=== PATIENT | female | born 1940 | race Caucasian/White ===

== ENCOUNTER → 2017-01-16 | Outpatient (CLI) | payer MEDICARE, OTHER | END | disposition home or self-care (01) | LOC: GMAB 17:46 | PROVIDERS: ATTEND Family Medicine | DX: R41.82 Altered mental status, unspecified (principal); R41.81 Age-related cognitive decline ==

== ENCOUNTER → 2017-01-18 | Outpatient (CLI) | payer MEDICARE, OTHER ==
--- NOTE | 2017-01-21 17:23 | MRI ---
EXAM DESCRIPTION: Brain w/oContrast CLINICAL HISTORY: 76 years Female, MEMORY LOSS, ALT MENTAL STATUS, AGE RELATED COGN DECLINE COMPARISON: None. TECHNIQUE: Multiplanar multisequence images of the brain were obtained without gadolinium contrast. FINDINGS: There is no diffusion restriction. Midline structures, including the corpus callosum, pituitary and brainstem, are unremarkable. The ventricles are of normal size and configuration without intraventricular mass. No extra-axial fluid collections. Physiologic vascular flow voids are noted. The internal auditory canals are unremarkable. No posterior fossa lesion. There are only minimal chronic ischemic microvascular changes involving periventrical white matter. No intracranial mass or cortical infarct. Visualized paranasal sinuses and orbits are unremarkable. No calvarial lesion. IMPRESSION: Very mild chronic ischemic microvascular changes, but no cortical infarct, atrophy or other intracranial abnormality to explain patient symptoms. Electronically signed by: German Kaye MD 01/21/2017 12:20 PM CDT Workstation: [id number]
== END ==
LOC: MRI 13:59
PROVIDERS: ATTEND Family Medicine
DX: R41.82 Altered mental status, unspecified (principal); R41.81 Age-related cognitive decline

== ENCOUNTER → 2017-04-02 | Outpatient (CLI) | payer MEDICARE, OTHER | END | disposition home or self-care (01) | LOC: GMAB 10:36 | PROVIDERS: ATTEND Family Medicine | DX: I10 Essential (primary) hypertension (principal) ==

== ENCOUNTER → 2018-09-24 | Outpatient (CLI) | payer MEDICARE, OTHER | LOC: GMAE 13:13 | PROVIDERS: ATTEND Family Medicine | DX: I10 Essential (primary) hypertension (principal) ==

== ENCOUNTER → 2018-09-30 | Outpatient (CLI) | payer MEDICARE, OTHER | LOC: GMAE 14:09 | PROVIDERS: ATTEND Family Medicine | DX: R07.2 Precordial pain (principal) ==

== ENCOUNTER 2018-10-07 13:54 | Emergency (ER) | payer MEDICARE, OTHER ==
[2018-10-07 14:09] VITALS: TEMP 97.6
--- NOTE | 2018-10-07 14:45 | RAD ---
EXAM DESCRIPTION: Wrist,Right 3 Views CLINICAL HISTORY: fall with pain distal radius COMPARISON: None. TECHNIQUE: 3 views right FINDINGS: Diffuse osteopenia is observed. Some calcification of the triangle fibrocartilage is noted. Radial side intracarpal arthritis is noted. Degenerative changes are observed in the fingers of the hand. No fracturing is detected. IMPRESSION: Osteopenia and degenerative changes are observed in the wrist. No fracturing is detected. Electronically signed by: Kishor Garcia MD 10/07/2018 2:42 PM CDT
--- NOTE | 2018-10-07 14:53 | ED.PDOC ---
History of Present Illness - General Chief Complaint: Upper Extremity Injury Stated Complaint: R wrist injury Time Seen by Provider: 10/07/18 14:00 Source: patient Exam Limitations: no limitations - History of Present Illness Initial Comments: the patient is an 78-year-old female presenting to the emergency room secondary to having injured her rightwrist after tripping while working in the garden. The patient has no obvious deformity other than some swelling around the wrist. She appears to be neurovascularly preserved. Capillary refills normal limits. She moves her fingers well. Normal movement of the elbow and shoulder. She does have some guarding of the wrist itself. Tenderness is mainly localized over thedistal radius. Timing/Duration: 4-6 hours Severity: moderate Improving Factors: immobilization Worsening Factors: movement Associated Symptoms: denies symptoms Allergies/Adverse Reactions: Allergies NO KNOWN ALLERGY Allergy (Verified 09/16/12 15:23) Home Medications: Ambulatory Orders Aspirin [Aspirin Adult Low Strengt] 81 mg PO DAILY 09/16/12 Metoprolol Succinate [Toprol Xl] 50 mg PO DAILY 09/16/12 Simvastatin 40 mg PO DAILY 09/16/12 Review of Systems - Review of Systems Constitutional: States: no symptoms reported EENTM: States: no symptoms reported Respiratory: States: no symptoms reported Cardiology: States: no symptoms reported Gastrointestinal/Abdominal: States: no symptoms reported Genitourinary: States: no symptoms reported Musculoskeletal: States: see HPI Skin: States: no symptoms reported Neurological: States: no symptoms reported Endocrine: States: no symptoms reported All other Systems: No Change from Baseline Past Medical History (General) - Patient Medical History Hx Stroke: No Hx Cardiac Disorders: Yes - Dyslipidemia Hx Congestive Heart Failure: No Hx Hypertension: Yes Hx Diabetes: No Surgical History: appendectomy, tonsillectomy, Hysterectomy - Vaccination History Hx Influenza Vaccination: Yes - 03/2018 Hx Pneumococcal Vaccination: No - Social History Hx Tobacco Use: No Hx Alcohol Use: No Family Medical History - Family History Mother Living Status: Cause of : Ovarian CA Physical Exam - Physical Exam General Appearance: Alert, Comfortable, No apparent distress Eye Exam: bilateral normal Ears, Nose, Throat: hearing grossly normal Neck: full range of motion Respiratory: no respiratory distress, no accessory muscle use Cardiovascular/Chest: normal peripheral pulses, no edema Peripheral Pulses: radial,right: 2+, radial,left: 2+ Rectal Exam: deferred Back Exam: normal inspection Extremity: no pedal edema, normal capillary refill, swelling, other - see history of present illness 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 The patient appears to have a mild right wrist sprain. X-ray shows no evidence of any fracture or dislocation. Motrin can be used for discomfort. Nir wrap was applied. Keep routine follow up with primary care doctor otherwise. Departure - Departure Clinical Impression: Sprain of wrist, right Qualifiers: Encounter type: initial encounter Qualified Code(s): S63.501A - Unspecified sprain of right wrist, initial encounter Disposition: Discharge to Home or Self Care Condition: Fair Departure Forms: ED Discharge - Pt. Copy, Patient Portal Self Enrollment Instructions: DI for Hand Injury Diet: regular diet Activity: no pushing/pulling with affected limb Referrals: RANDI HEDRICK MD [Primary Care Provider] - 1-2 Weeks Home Medications: Ambulatory Orders Aspirin [Aspirin Adult Low Strengt] 81 mg PO DAILY 09/16/12 Metoprolol Succinate [Toprol Xl] 50 mg PO DAILY 09/16/12 Simvastatin 40 mg PO DAILY 09/16/12 Additional Instructions: the patient is a 78-year-old female presented to emergency room secondary to falling while in her yard. The patient appears to have a mild right wrist sprain. X-ray shows no evidence of any fracture or dislocation. Motrin can be used for discomfort. Nir wrap was applied. Keep routine follow up with primary care doctor otherwise.
[2018-10-07 15:04] VITALS: BP 125/72; O2SAT 95
== END 2018-10-07 15:00 | disposition home or self-care (01) ==
LOC: ER 13:54
DX: S63.501A Unspecified sprain of right wrist, initial encounter (principal); E78.5 Hyperlipidemia, unspecified; I10 Essential (primary) hypertension; Z79.82 Long term (current) use of aspirin; Z79.899 Other long term (current) drug therapy; W01.0XXA Fall on same level from slipping, tripping and stumbling without subsequent striking against object, initial encounter; Y92.007 Garden or yard of unspecified non-institutional (private) residence as the place of occurrence of the external cause; Y93.H2 Activity, gardening and landscaping

== ENCOUNTER → 2019-03-19 | Outpatient (CLI) | payer MEDICARE, OTHER | LOC: NM 09:00 | PROVIDERS: ATTEND Family Medicine | DX: R07.89 Other chest pain (principal) ==

== ENCOUNTER → 2019-11-05 | Outpatient (CLI) | payer MEDICARE, OTHER | LOC: RESP 15:08 | PROVIDERS: ATTEND Family Medicine | DX: F10.129 Alcohol abuse with intoxication, unspecified (principal); R00.1 Bradycardia, unspecified ==

== ENCOUNTER → 2019-12-15 | Outpatient (CLI) | payer MEDICARE, OTHER | LOC: GMAE 11:19 | PROVIDERS: ATTEND Family Medicine | DX: I10 Essential (primary) hypertension (principal) ==

== ENCOUNTER → 2019-12-23 | Outpatient (CLI) | payer MEDICARE, OTHER ==
[~2019-12-23] MED LIST: ALBUTEROL SULFATE 2.5 MG/3 ML VIAL NEB ONE
== END ==
LOC: RESP 12-22 14:05
PROVIDERS: ATTEND Family Medicine
DX: R06.00 Dyspnea, unspecified (principal)

== ENCOUNTER 2020-04-08 13:22 | Emergency (ER) | payer MEDICARE, OTHER ==
[2020-04-08] MEDS ORDERED: HYDROmorphone HCL INJ 2 MG/ML VIAL IM ONE (13:45)
[2020-04-08] MEDS ORDERED: ONDANSETRON ODT (ER DISP) 8 MG TAB PO ONE (13:47)
[2020-04-08] MEDS ORDERED: ONDANSETRON ODT 8 MG TAB SL ONE (13:50)
--- NOTE | 2020-04-08 14:35 | CT ---
EXAM DESCRIPTION: Cervical Spine CLINICAL HISTORY: TRAUMA COMPARISON: None available. TECHNIQUE: Axial noncontast CT of the cervical spine with coronal and sagittal reformats. This exam was performed according to our departmental dose-optimization program, which includes automated exposure control, adjustment of the mA and/or kV according to patient size and/or use of iterative reconstruction technique. FINDINGS: Cervical vertebral body heights are maintained. Straightening of the normal cervical lordosis. Osteopenia the osseous structures. No acute fracture or posttraumatic positional abnormality of the cervical spine. Bony hypertrophy between the spinous process of C7 and T1 is noted. Moderate to severe facet hypertrophic and degenerative changes of the left from C3 through C6. Severe disc space narrowing at C5-6 with moderate disc space narrowing at C6-7. Bony foraminal encroachment is seen most significantly on the left at C3-4 and C4-5. Moderate degenerative changes between the anterior arch of C1 and the odontoid. Patchy groundglass attenuation is seen in the lung apices. IMPRESSION: No CT evidence of acute fracture or posttraumatic positional abnormality of the cervical spine. Moderate to severe spondylitic changes of the cervical spine are seen. Groundglass attenuation in the lung apices is nonspecific. Imaging features can be seen with COVID-19 pneumonia, though are nonspecific and can occur with a variety of infectious and noninfectious processes. [PneInd] Electronically signed by: Negro Merritt MD 04/08/2020 2:33 PM CDT
--- NOTE | 2020-04-08 14:36 | CT ---
EXAM DESCRIPTION: Head CLINICAL HISTORY: TRAUMA COMPARISON: None TECHNIQUE: Noncontrast transaxial CT images of the head are obtained from base to vertex. This exam was performed according to our departmental dose-optimization program, which includes automated exposure control, adjustment of the mA and/or kV according to patient size and/or use of iterative reconstruction technique. FINDINGS: The midline structures are not displaced. Sulci are age-appropriate. There are areas of decreased attenuation in the periventricular white matter and the white matter of the centrum semiovale. There is no evidence of mass, mass-effect, hydrocephalus, or acute intracranial hemorrhage. No abnormal extra axial fluid collection is seen. Bone windows show no evidence of depressed skull fracture. Moderate calcifications of the intracranial carotid arteries. The visualized paranasal sinuses are unremarkable. IMPRESSION: 1. Age-appropriate atrophy with evidence of old small vessel ischemic type changes seen. 2. No acute abnormality is seen on noncontrast CT of the head. Electronically signed by: Negro Merritt MD 04/08/2020 2:34 PM CDT
--- NOTE | 2020-04-08 14:44 | CT ---
EXAM DESCRIPTION: Lumbar Spine CLINICAL HISTORY: TRAUMA COMPARISON: None TECHNIQUE: Non contrast transaxial CT images of the lumbar spine are obtained with coronal and sagittal reconstructed images. This exam was performed according to our departmental dose-optimization program, which includes automated exposure control, adjustment of the mA and/or kV according to patient size and/or use of iterative reconstruction technique . FINDINGS: GENERAL Osseous structures are diffusely osteopenic. Lumbar vertebral body heights are maintained. Designated L5-S1 disc space is seen on axial image 77 of series 5. A rudimentary S1-S2 disc space is seen. Visualized intra-abdominal retroperitoneal structures show no acute findings. Degenerative changes of the sacroiliac joints are seen. Mild to moderate disc space narrowing throughout the lumbar spine is most significant at L4-5 and L5-S1 with vacuum disc at these levels. Facet hypertrophic and degenerative changes are also seen throughout the lumbar spine with severe facet arthropathy at L4-5 and left greater than right severe facet arthropathy at L5-S1. Multifactorial severe spinal canal stenosis seen at L4-5 with moderate bilateral foraminal encroachment. At least moderate spinal canal stenosis is seen at L5-S1 with moderate left foraminal encroachment. IMPRESSION: Osteopenia the osseous structures is seen without acute fracture or posttraumatic positional abnormality of the lumbar spine. Moderate to severe on the lytic changes of the lumbar spine are most significant from L4 through S1. Multifactorial severe spinal canal stenosis with moderate bilateral foraminal encroachment is seen at L4-5. Electronically signed by: Negro Merritt MD 04/08/2020 2:42 PM CDT
--- NOTE | 2020-04-08 14:50 | ED.PDOC ---
History of Present Illness - General Chief Complaint: Trauma Stated Complaint: back pain Time Seen by Provider: 04/08/20 13:43 Additional Information: FELL BACKWARDS AT HOME, LAID ON GROUND FOR APPROXIMATELY 30 MINUTES BEFORE FOUND BY NEIGHBOR. WAS KNOCKED DOWN BY HER DOG. C/O PAIN IN OCCIPUT AREA, HER NECK AND HER LOW BACK. DENIES LOC, RECENTLY ON ANTICOAGULANT BECAUSE OF COVID ILLNESS. - History of Present Illness Occurred: just prior to arrival Allergies/Adverse Reactions: Allergies NO KNOWN ALLERGY Allergy (Verified 09/16/12 15:23) Home Medications: Ambulatory Orders Aspirin [Aspirin Adult Low Strengt] 81 mg PO DAILY 09/16/12 Simvastatin 40 mg PO DAILY 09/16/12 Citalopram Hydrobromide [Citalopram] 20 mg PO DAILY 04/08/20 Hydrochlorothiazide 12.5 mg PO DAILY 04/08/20 Omeprazole 40 mg PO DAILY 04/08/20 Tramadol-Acetaminophen [Ultracet] 1 ea PO Q4H PRN #25 tab 04/08/20 Review of Systems - Review of Systems Constitutional: States: no symptoms reported EENTM: States: no symptoms reported Respiratory: States: no symptoms reported, cough Cardiology: States: no symptoms reported. Denies: chest pain Gastrointestinal/Abdominal: States: no symptoms reported, abdominal pain Musculoskeletal: States: no symptoms reported Skin: States: no symptoms reported Neurological: States: no symptoms reported Past Medical History (General) - Patient Medical History Hx Stroke: No Hx Cardiac Disorders: Yes - Dyslipidemia Hx Congestive Heart Failure: No Hx Hypertension: Yes Hx Diabetes: No Surgical History: appendectomy, Hysterectomy - Vaccination History Hx Influenza Vaccination: Yes - 03/2018 Hx Pneumococcal Vaccination: No - Social History Hx Tobacco Use: No Hx Alcohol Use: No Family Medical History - Family History Mother Living Status: Cause of : Ovarian CA Physical Exam - Physical Exam General Appearance: Alert, Anxious, Frail Head Injury: swelling - MILD OCCIPITAL, tenderness - MILD OCCIPITAL Neck Exam: tenderness - DIFFUSE, tender lateral - BILATERAL DIFFUSE Cardiovascular/Respiratory: regular rate, rhythm, normal peripheral pulses, no JVD, normal breath sounds, no respiratory distress Gastrointestinal/Abdominal: normal bowel sounds, non tender, soft, no organomegaly Back Exam: muscle spasm - LUMBAR L3-4 AREA, vertebral tenderness - L3-4 AREA. 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, no motor/sensory deficits, alert, normal mood/affect Skin Exam: normal color, warm/dry Departure - Departure Clinical Impression: Contusion of scalp Qualifiers: Encounter type: initial encounter Qualified Code(s): S00.03XA - Contusion of scalp, initial encounter Cervical strain, acute Qualifiers: Encounter type: initial encounter Qualified Code(s): S16.1XXA - Strain of muscle, fascia and tendon at neck level, initial encounter Lumbar strain Qualifiers: Encounter type: initial encounter Qualified Code(s): S39.012A - Strain of muscle, fascia and tendon of lower back, initial encounter Disposition: Discharge to Home or Self Care Condition: Fair Departure Forms: ED Discharge - Pt. Copy, Patient Portal Self Enrollment Instructions: DI for Trauma Referrals: RANDI HEDRICK MD [Primary Care Provider] - 1-2 Weeks Prescriptions: Tramadol-Acetaminophen [Ultracet] 1 ea PO Q4H PRN #25 tab PRN Reason: Pain Home Medications: Ambulatory Orders Aspirin [Aspirin Adult Low Strengt] 81 mg PO DAILY 09/16/12 Simvastatin 40 mg PO DAILY 09/16/12 Citalopram Hydrobromide [Citalopram] 20 mg PO DAILY 04/08/20 Hydrochlorothiazide 12.5 mg PO DAILY 04/08/20 Omeprazole 40 mg PO DAILY 04/08/20 Tramadol-Acetaminophen [Ultracet] 1 ea PO Q4H PRN #25 tab 04/08/20 Additional Instructions: ALSO RECOMMEND OTC IBUPROFEN 800 MG THREE TIMES PER DAY X 5 DAYS. REEVALUATION IN 1 WEEK IF NOT IMPROVING.
[2020-04-08 15:10] VITALS: BP 130/70; TEMP 97.9; O2SAT 93
== END 2020-04-08 15:10 | disposition home or self-care (01) ==
LOC: ER 13:22
DX: S00.03XA Contusion of scalp, initial encounter (principal); S16.1XXA Strain of muscle, fascia and tendon at neck level, initial encounter; S39.012A Strain of muscle, fascia and tendon of lower back, initial encounter; R10.9 Unspecified abdominal pain; E78.5 Hyperlipidemia, unspecified; I10 Essential (primary) hypertension; R05 Cough; Z79.82 Long term (current) use of aspirin; Z79.899 Other long term (current) drug therapy; Z79.01 Long term (current) use of anticoagulants; Z86.19 Personal history of other infectious and parasitic diseases; W18.30XA Fall on same level, unspecified, initial encounter; Y92.009 Unspecified place in unspecified non-institutional (private) residence as the place of occurrence of the external cause; W54.1XXA Struck by dog, initial encounter
CPT/HCPCS: 70450; 72125; 72131; J1170

== ENCOUNTER → 2020-07-12 | Outpatient (CLI) | payer MEDICARE, OTHER | LOC: BFHH 10:46 | PROVIDERS: ATTEND Family Medicine | DX: N39.0 Urinary tract infection, site not specified (principal) ==

== ENCOUNTER → 2020-07-18 | Outpatient (CLI) | payer MEDICARE, OTHER | LOC: BFHH 09:53 | PROVIDERS: ATTEND Family Medicine | DX: I10 Essential (primary) hypertension (principal); E55.9 Vitamin D deficiency, unspecified; R53.1 Weakness ==

== ENCOUNTER → 2020-08-03 | Outpatient (CLI) | payer MEDICARE, OTHER ==
--- NOTE | 2020-08-04 20:22 | MRI ---
EXAM DESCRIPTION: Lumbar Spine w/o Contrast : Magnetic Resonance Imaging. CLINICAL HISTORY: BACK PAIN COMPARISON: MRI scan lumbar spine March 2014. TECHNIQUE: CT scan lumbar spine April 2020. FINDINGS: L5-S1: The disc is well visualized on axial T2 series 501, image 8. Rudimentary S1-S2 disc is present with the S1 vertebra transitional and partially lumbarized. L5-S1 disc desiccation and moderate disc space loss in the midline and left. Posterior broad-based bulge. Disc osteophyte complex encroaching on the left foramen abutting the left L5 nerve. Moderate narrowing of the right foramen hypertrophic changes of the posterior flavum ligaments and facet joints (canal elements). Bilateral short pedicles bilateral narrowing of the subarticular recesses, possibly stenotic on the left, encroaching on the left S1 nerve. AP canal diameter 6 mm. This has progressed since the prior study. Compression type fracture of the head and anterior vertebral body predominantly the inferior endplate with marrow edema. Not present on the prior MRI or CT scan. Expansion of the T12-L1 disc space into the endplate. No marrow edema in the pedicles. Trace retropulsion of the inferior endplate. Minimal edema in the T12-L1 disc. Soft tissue edema anterior to the vertebra and also more on the left L4-L5: Disc desiccation and minimal disc space loss mostly posterior. Grade 1 anterolisthesis 6 mm has increased since the prior study. Bilateral short pedicles. Hypertrophic changes in the canal elements impressing on the posterior thecal sac. AP canal diameter 5 mm. This has progressed since the prior study. Bilateral narrowing of the subarticular recesses. Moderate to severe left foraminal narrowing and borderline right foraminal stenosis. Stenosis has progressed since the prior study. L3-L4: Disc desiccation with anterior bulging and endplate ridging. Posterior disc space loss and moderate endplate reactive changes. Bilaterally shortened pedicles. Hypertrophic canal elements impressing on the posterior thecal sac. AP canal diameter 9.5 mm. Moderate to severe right foraminal narrowing and borderline left foraminal stenosis. Canal and foraminal stenosis has progressed since the prior study. Narrowing of the bilateral subarticular recesses. L2-L3: Disc desiccation with minimal posterior disc space loss. Anterior moderate endplate reactive changes and spur formation. Minimal posterior bulge. Bilateral pedicle shortening. Hypertrophic changes in the canal elements impressing on the posterior thecal sac. AP canal diameter 10 mm. This has progressed since the prior study. Mild narrowing of the left foramen and moderate narrowing of the right foramen. L1-L2: Disc desiccation with anterior right side moderate endplate reactive changes in spur formation. Minimal posterior bulge. Bilateral short pedicles and bilateral hypertrophic changes in the canal elements. AP canal diameter 10 mm. Mild to moderate narrowing of the right foramen and mild narrowing of the left foramen. Conus terminates at this level. T12-L1: Disc spur complex and retropulsion of the inferior T12 endplate resulting in right foraminal stenosis. Borderline left foraminal stenosis progressed since the prior study. Bilateral shortened pedicles. Bilateral mild hypertrophic changes in the canal elements. AP canal diameter 11 mm. This has progressed since the prior study. No scoliosis. Paravertebral soft tissues muscle atrophy and edema as previously described.. Distal cord normal signal and caliber. Otherwise normal marrow signal in the remaining vertebral bodies and the posterior elements. Vertebral bodies are not compressed at any level. IMPRESSION: 1. Mild fracture of the anterior more than central T12 vertebral body, involving the inferior endplate with marrow edema in the inferior endplate and anterior vertebral body. Not seen on the CT scan in April 2020. No marrow edema in the pedicles. Soft tissue edema anterior and to the left of the vertebral body. Also edema in the T12-L1 disc space. Bilateral foraminal stenosis T12-L1 has progressed since the prior study. Inferior endplate retropulsion but no cord impingement. 2. Multilevel disc desiccation, multilevel hypertrophic changes in the posterior flavum ligaments and facet joints, multilevel spondylosis, predominantly anterior. 3. Spondylosis left at the L4-5 level with foraminal stenosis. Severe multifactorial central canal stenosis at L5-S1, L4-5, with increased anterolisthesis since the prior study, and increasing canal stenosis since the prior study. Mild multifactorial central canal stenosis L3-L4. Canal stenosis or foraminal stenosis have progressed since the prior study. 4. Multifactorial borderline mild central canal stenosis at L2-3 and L1-L2. This is progressed since the prior study. 5. Please refer to FINDINGS for discussion of results at specific disc space levels. Electronically signed by: Faisal Mckeon MD 08/04/2020 8:20 PM [facility]
== END ==
LOC: MRI 10:06
PROVIDERS: ATTEND Neurological Surgery
DX: S22.088S Other fracture of T11-T12 vertebra, sequela (principal); M48.05 Spinal stenosis, thoracolumbar region; M48.061 Spinal stenosis, lumbar region without neurogenic claudication; M48.07 Spinal stenosis, lumbosacral region; M51.85 Other intervertebral disc disorders, thoracolumbar region; M51.35 Other intervertebral disc degeneration, thoracolumbar region; M51.36 Other intervertebral disc degeneration, lumbar region; M47.896 Other spondylosis, lumbar region; M43.16 Spondylolisthesis, lumbar region; R60.0 Localized edema

== ENCOUNTER → 2020-08-30 | Outpatient (CLI) | payer MEDICARE, OTHER ==
--- NOTE | 2020-08-30 14:30 | US ---
EXAM DESCRIPTION: Carotid Duplex: ULTRASOUND. CLINICAL HISTORY: 80 years Female [facility]OPE COMPARISON: None. TECHNIQUE: Transcutaneous scanning utilizing leonardo-scale and Doppler modes to evaluate the bilateral carotid systems and vertebral arteries. Percentage of diameter of stenosis or no stenosis recorded will be based upon NASCET criteria. FINDINGS: Peak systolic/end diastolic velocities (CM-Sec) CCA Right 74/11 Left 90/17. ICA Right proximal 45/8, distal 60/14. Left proximal 36/8, mid 58/14. Vertebral Right 29/8 Left 51/10. ECA (PS Only) Right 81 left 70. ICA/CCA peak systolic velocity ratio: Right 0.8 Left 0.6 ICA/CCA end diastolic velocity ratio: Right 1.3 Left 0.8 Vertebral arteries: antegrade flow. Comments: Minimal plaque. No spectral broadening. IMPRESSION: 1. Doppler evaluation of the bilateral carotid systems and vertebral arteries shows no hemodynamically significant stenoses (less than 70%). 2. No significant amount of plaque in the carotid arteries bilaterally. Bilateral vertebral arteries showed antegrade-cephalad flow. Electronically signed by: Faisal Mckeon MD 08/30/2020 2:29 PM [facility]
== END ==
LOC: US 11:05
PROVIDERS: ATTEND Family Medicine
DX: R55 Syncope and collapse (principal)